=== PATIENT | female | born 1970 | race Caucasian/White ===

== ENCOUNTER 2017-10-01 16:09 | Emergency (ER) | payer BC ==
[~2017-10-01] VITALS: Ht 167.6 cm; Wt 102.0 kg
[~2017-10-01 16:09] MED LIST: CLX/20 PO; LEVO75TA5 PO; TPRSR/25 PO
[2017-10-01 16:14] VITALS: TEMP 36.8; Ht 167.6 cm; Wt 102.0 kg
[2017-10-01] MEDS ORDERED: MECLIZINE HCL 25 MG TAB PO STA (16:32)
[2017-10-01 16:46] VITALS: O2SAT 99
[2017-10-01 17:05] LABS: BASO % 0.5 %; BASO ABS # 0.03 K/uL (0-0.2); COMPLETE YES; HEMATOCRIT 41.4 % (37-47); IG% 0.3 %; LYMPH % 47.6 %; LYMPH ABS # 2.73 K/uL (1.2-3.4); MEAN CELL VOLUME 88.1 fL (80-100); MEAN CORPUSCULAR HGB CONC 34.1 g/dl (32-36); MONO % 11.3 %; NEUT % 39.3 %; PLATELET COUNT 225 K/uL (130-400); WHITE BLOOD COUNT 5.73 K/uL (4.8-10.8)
[2017-10-01 17:06] LABS: URINE APPEARANCE CLEAR (CLEAR); URINE BILIRUBIN NEG (NEG); URINE COLOR YELLOW; URINE NITRITE NEG (NEG); URINE SPECIFIC GRAVITY 1.011 (1.000-1.030); UROBILINOGEN NEG (NEG); ZZUR CULT IF INDIC CLEAN CATCH NO
[2017-10-01 17:09] LABS: MANUAL MICROSCOPIC REQUIRED? NO; REVIEW REQ? NO
--- NOTE | 2017-10-01 17:12 | EMERGENCY ROOM VISIT NOTE ---
History Report prepared by Fe: Kong Evans Under the Supervision of: Dr. Tristin Engle M.D. First contact with patient: 16:23 Chief Complaint: HYPERTENSION Stated Complaint: DIZZINESS, HIGH BP History of Present Illness The patient is a 47 year old female who presents to the Emergency Room with complaints of intermittent dizziness beginning five days ago. She also complains of a headache. The patient at an urgent care center today and was referred to the ED for further evaluation. She has a history of headaches which are typically resolved with seeing a chiropractor. She was seen by a chiropractor three times within the past week, but none resolved her headache. She states that her headache has since resolved. The patient notes that she found her blood pressure to be very high this morning. She states that she had a fever of 103 degrees five days ago. She denies weakness, vomiting, sore throat , cough, urinary symptoms, or visual changes. The patient had one episode of diarrhea this week. She notes that she was bit by a tick two weeks ago, but has not noticed any rashes. She denies any recent falls or trauma. The patient had her thyroid checked a few days ago. Source of History: patient Onset: Five days ago Quality: other (dizziness) Timing: intermittent Associated Symptoms: + fevers (103 degrees five days ago), + headache ( resolved), + diarrhea (one episode in the past week), No sorethroat, No cough, No vomiting, No weakness, No rash Review of Systems See HPI for pertinent positives & negatives. A total of 10 systems reviewed and were otherwise negative. Past Medical & Surgical Medical Problems: (1) Anxiety (2) Left sided chest pain (3) Poorly-controlled hypertension (4) Tachycardia Family History Hypertension Social History Smoking Status: Never Smoker Current/Historical Medications Scheduled Buspirone Hcl (Buspirone Hcl), 5 MG PO AMPM Levothyroxine Sodium (Levothyroxine Sodium), 88 MCG PO DAILY Lisinopril (Prinivil), 10 MG PO DAILY Metoprolol Succinate (Metoprolol Succinate ER), 25 MG PO DAILY Scheduled PRN Meclizine HCl (Meclizine HCl), 1 TAB PO Q6 PRN for Dizziness or Vertigo Allergies Coded Allergies: Flu Virus Vaccine (Unverified Allergy, Unknown, HIVES, 10/01/17) Physical Exam Vital Signs Date Time Temp Pulse Resp B/P (MAP) Pulse Ox O2 Delivery O2 Flow Rate FiO2 10/01/17 18:24 82 16 148/78 98 Room Air 10/01/17 17:18 83 20 154/85 85 167/83 95 168/100 10/01/17 17:12 84 10/01/17 16:46 99 Room Air 10/01/17 16:14 36.8 97 16 166/96 99 Room Air Physical Exam GENERAL: Patient is in no acute distress. HEENT: No acute trauma, normocephalic atraumatic, mucous membranes moist, no nasal congestion, no scleral icterus. Fluid behind both ear drums. No erythema to the drum noted. No nystagmus. NECK: No stridor, no adenopathy, no meningismus, trachea is midline. LUNGS: Clear to auscultation bilaterally, no wheeze, no rhonchi, breath sounds equal. HEART: Without murmurs gallops or rubs, regular rate and rhythm. ABDOMEN: Soft, nontender, bowel sounds positive, no hernias, no peritonitis. EXTREMITIES: No cyanosis or edema, full range of motion of all the joints without pain or difficulty, no signs for acute trauma. NEUROLOGIC: Oriented x 3, no acute motor or sensory deficits, no focal weakness. No pronator drift or cerebellar dysfunction. SKIN: No rash, no jaundice, no diaphoresis. Medical Decision & Procedures ER Provider Diagnostic Interpretation: CT results as stated below per my review and radiologist interpretation: HEAD WITHOUT CONTRAST (CT) FINDINGS: Clinical Engineer topogram: Unremarkable. Ventricles and sulci normal in size. Brain parenchyma normal in appearance with preserved cervantes-white differentiation. No mass effect or midline shift. No hemorrhage or acute territorial infarct. No extra-axial fluid collection. Paranasal sinuses and mastoid air cells clear. Calvarium intact. IMPRESSION: 1. No acute intracranial abnormality. Electronically signed by: Jero Fish M.D. 10/01/2017 5:30 PM Orthostatic vital signs are negative. Laboratory Results 10/01/17 16:50 Red Blood Count 4.70, Mean Corpuscular Volume 88.1, Mean Corpuscular Hemoglobin 30.0, Mean Corpuscular Hemoglobin Concent 34.1, Mean Platelet Volume 10.0, Neutrophils (%) (Auto) 39.3, Lymphocytes (%) (Auto) 47.6, Monocytes (%) (Auto) 11.3, Eosinophils (%) (Auto) 1.0, Basophils (%) (Auto) 0.5, Neutrophils # (Auto ) 2.24, Lymphocytes # (Auto) 2.73, Monocytes # (Auto) 0.65, Eosinophils # (Auto ) 0.06, Basophils # (Auto) 0.03 10/01/17 16:50 Test 10/01/17 16:45 10/01/17 16:50 Urine Color YELLOW Urine Appearance CLEAR (CLEAR) Urine pH 7.0 (4.5-7.5) Urine Specific [place] 1.011 (1.000-1.030) Urine Protein NEG (NEG) Urine Glucose (UA) NEG (NEG) Urine Ketones NEG (NEG) Urine Occult Blood NEG (NEG) Urine Nitrite NEG (NEG) Urine Bilirubin NEG (NEG) Urine Urobilinogen NEG (NEG) Urine Leukocyte Esterase NEG (NEG) White Blood Count 5.73 K/uL (4.8-10.8) Red Blood Count 4.70 M/uL (4.2-5.4) Hemoglobin 14.1 g/dL (12.0-16.0) Hematocrit 41.4 % (37-47) Mean Corpuscular Volume 88.1 fL (80-100) Mean Corpuscular Hemoglobin 30.0 pg (25-34) Mean Corpuscular Hemoglobin Concent 34.1 g/dl (32-36) Platelet Count 225 K/uL (130-400) Mean Platelet Volume 10.0 fL (7.4-10.4) Neutrophils (%) (Auto) 39.3 % Lymphocytes (%) (Auto) 47.6 % Monocytes (%) (Auto) 11.3 % Eosinophils (%) (Auto) 1.0 % Basophils (%) (Auto) 0.5 % Neutrophils # (Auto) 2.24 K/uL (1.4-6.5) Lymphocytes # (Auto) 2.73 K/uL (1.2-3.4) Monocytes # (Auto) 0.65 K/uL (0.11-0.59) Eosinophils # (Auto) 0.06 K/uL (0-0.5) Basophils # (Auto) 0.03 K/uL (0-0.2) RDW Standard Deviation 40.5 fL (36.4-46.3) RDW Coefficient of Variation 12.5 % (11.5-14.5) Immature Granulocyte % (Auto) 0.3 % Immature Granulocyte # (Auto) 0.02 K/uL (0.00-0.02) Anion Gap 9.0 mmol/L (3-11) Est Creatinine Clear Calc Drug Dose 112.7 ml/min Estimated GFR () 109.8 Estimated GFR (Non- 94.7 BUN/Creatinine Ratio 16.1 (10-20) Calcium Level 9.5 mg/dl (8.5-10.1) Total Bilirubin 0.4 mg/dl (0.2-1) Aspartate Amino Transf (AST/SGOT) 215 U/L (15-37) Alanine Aminotransferase (ALT/SGPT) 337 U/L (12-78) Alkaline Phosphatase 196 U/L (45-117) Total Protein 8.0 gm/dl (6.4-8.2) Albumin 3.9 gm/dl (3.4-5.0) Globulin 4.1 gm/dl (2.5-4.0) Albumin/Globulin Ratio 1.0 (0.9-2) Human Chorionic Gonadotropin, Qual NEG (NEG) Lyme Disease IgG Antibody NEG (NEG) Lyme Disease IgM Antibody NEG (NEG) Laboratory results reviewed by me. Medications Administered Medications (Trade) Dose Ordered Sig/Shanti Route Start Time Stop Time Status Last Admin Dose Admin Meclizine HCl (Antivert Tab) 25 mg NOW STAT PO 10/01/17 16:32 10/01/17 16:39 DC 10/01/17 16:56 25 MG ECG Indication: other (dizziness) Rate (beats per minute): 76 Rhythm: normal sinus Findings: no acute ischemic change, no ectopy ED Course 162: The patient was evaluated in room A9B. A complete history and physical exam was performed. 163: Ordered Antivert Tab 25 mg PO. 1819: Reevaluated the patient. Discussed results and discharge instructions: she verbalized understanding and agreement. The patient is ready for discharge. Medical Decision The patient is a 47 year old female who presents to the ED with complaints of intermittent dizziness. Differential diagnoses considered include vertigo, dehydration, viral illness, sinusitis, CVA, anemia, UTI and ICH. There is no leukocytosis or concerning anemia. No significant electrolyte abnormality, no kidney failure. There were elevations to the liver enzymes- this could be consistent with viral illness. Urinalysis does not show infection. Orthostatic vital signs were negative. Brain CT shows no acute bleed or mass effect. EKG shows a sinus rhythm, no acute ischemia. testing was negative. Lyme disease testing was negative. On exam, there were no focal neurologic deficits. The patient received oral meclizine. She has done well. I think the patient can be discharged with close outpatient follow-up, she will need her liver enzymes redrawn and checked.. Today's complaints may be from vertigo from the viral illness that caused her illness over this past weekend. The patient was encouraged to return if worsening. She was reassured and discharged home. Medication Reconcilliation Current Medication List: was personally reviewed by me Blood Pressure Screening Patient's blood pressure: Elevated blood pressure Blood pressure disposition: Referred to PCP Impression Primary Impression: Dizziness Additional Impression: Elevated liver enzymes Scribe Attestation The scribe's documentation has been prepared under my direction and personally reviewed by me in its entirety. I confirm that the note above accurately reflects all work, treatment, procedures, and medical decision making performed by me. Departure Information Dispostion Home / Self-Care Prescriptions Meclizine HCl (Meclizine HCl) 25 Mg Tab 1 TAB PO Q6 Y for Dizziness or Vertigo, #15 TAB Prov: Tristin Engle M.D. 10/01/17 Referrals David Gracia M.D. (PCP) Forms HOME CARE DOCUMENTATION FORM, IMPORTANT VISIT INFORMATION, WORK / SCHOOL INSTRUCTIONS Patient Instructions [facility] Additional Instructions meclizine 1 tab every 6 hours for vertigo symptoms repeat lab testing to check liver enzymes on rest stay hydrated return for worsening symptoms keep a log of your blood pressure for your doctor for Problem Qualifiers
[2017-10-01 17:23] LABS: BUN/CREATININE RATIO 16.1 (10-20); CALCIUM 9.5 mg/dl (8.5-10.1); CREATININE 0.76 mg/dl (0.60-1.20); POTASSIUM 3.8 mmol/L (3.5-5.1)
--- NOTE | 2017-10-01 17:31 | DIAGNOSTIC IMAGING REPORT ---
HEAD WITHOUT CONTRAST (CT) CLINICAL HISTORY: 47 years-old Female presenting with EVALUATE ALTERED MENTAL STATUS/WEAKNESS. TECHNIQUE: Multidetector CT imaging of the head was performed without the use of intravenous contrast. IV contrast: None. A dose lowering technique was used consistent with the principles of ALARA (as low as reasonably achievable). COMPARISON: None. CT DOSE (mGy.cm): The estimated cumulative dose is 601.98 mGy.cm. FINDINGS: Inside Sales Representative topogram: Unremarkable. Ventricles and sulci normal in size. Brain parenchyma normal in appearance with preserved cervantes-white differentiation. No mass effect or midline shift. No hemorrhage or acute territorial infarct. No extra-axial fluid collection. Paranasal sinuses and mastoid air cells clear. Calvarium intact. IMPRESSION: 1. No acute intracranial abnormality. Electronically signed by: Jero Fish M.D. 10/01/2017 5:30 PM Dictated Date/Time: 10/01/2017 5:28 PM
[2017-10-01 17:46] LABS: PREG INTERNAL NEGATIVE QC NEG CLEAR BACKGROUND; PREG INTERNAL POSITIVE QC POS CONTROL LINE
[2017-10-01] MEDS ORDERED: LISI10TA PO (18:03)
[2017-10-01] MEDS ORDERED: LEVO88TA3 PO (18:03)
[2017-10-01] MEDS ORDERED: BUSP5TAB59 PO (18:03)
[2017-10-01 18:10] LABS: LYME DISEASE AB IGG NEG (NEG)
[2017-10-01 18:11] LABS: LYME DISEASE AB IGM NEG (NEG)
[2017-10-01 18:24] VITALS: BP 148/78; PULSE 82; O2SAT 98
[2017-10-01] MEDS ORDERED: ANT25 PO (18:24)
== END 2017-10-01 18:36 | disposition home or self-care (01) ==
LOC: C.EDB 16:11 → C.EDA 18:36
DX: R42 Dizziness and giddiness (principal); R74.8 Abnormal levels of other serum enzymes; I10 Essential (primary) hypertension; F41.9 Anxiety disorder, unspecified; Z82.49 Family history of ischemic heart disease and other diseases of the circulatory system; Z79.899 Other long term (current) drug therapy